=== PATIENT | female | born 1980 | race Caucasian/White ===

== ENCOUNTER → 2022-09-20 08:39 | Outpatient (CLI) | payer OTHER, SELFPAY ==
[2022-09-20 09:21] LABS: Hematocrit 45.3 % (36-46); Hemoglobin 15.6 g/dL (12.0-16.0); Mean Corpuscular HGB Conc 34.4 % (30-36); Mean Corpuscular Hemoglobin 30.2 PG (26-34); Mean Corpuscular Volume 87.7 fL (80-100); Platelet Count 232 X10^3/uL (150-400); Red Blood Cell Count 5.17 X10^6/uL (4.0-5.2); White Blood Cell Count 8.6 X10^3/uL (4.5-11.0)
[2022-09-20 10:12] LABS: Alanine Aminotransferase 24 IU/L (<35); Albumin 4.4 g/dL (3.5-5.0); Albumin Globulin Ratio 1.1 (1.0-2.8); Alkaline Phosphatase 112 U/L (38-126); Aspartate Aminotransferase 25 IU/L (14-36); BUN Creatinine Ratio 13.3 (6-22); Bilirubin Total 0.7 mg/dL (0.2-1.3); Blood Urea Nitrogen 8 mg/dL (7-17); Calcium 8.9 mg/dL (8.4-10.2); Carbon Dioxide 26 mmol/L (22-32); Chloride 100 mmol/L (98-107); Cholesterol 166 mg/dL (140-199); Estimated Glomerular Filt Rate > 60 mL/min (>60); Globulin 3.9 g/dL (1.7-4.1); Glucose 90 mg/dL (70-100); HDL Cholesterol 48 mg/dL (40-60); HEMOLYSIS < 15 (0-50); LDL Cholesterol Calculated 88 mg/dL (<100); Potassium 3.6 mmol/L (3.4-5.1); Sodium 138 mmol/L (137-145); Total Protein 8.3 g/dL (6.3-8.2); Triglycerides 151 mg/dL (35-150)
[2022-09-20 10:42] LABS: TSH w/ Reflex to FT4 1.23 uIU/mL (0.47-4.68)
== END ==
PROVIDERS: PCP Internal Medicine; Referring Provider Internal Medicine; Visit Provider Internal Medicine
DX: E78.2 Mixed hyperlipidemia (principal); I10 Essential (primary) hypertension
CPT/HCPCS: 36415; 80053; 80061; 84443; 85027

== ENCOUNTER → 2023-12-27 12:50 | Outpatient (CLI) | payer OTHER, SELFPAY | PROVIDERS: PCP Internal Medicine; Referring Provider Internal Medicine; Visit Provider Internal Medicine | DX: E78.2 Mixed hyperlipidemia (principal); I10 Essential (primary) hypertension | CPT/HCPCS: 36415 ==

== ENCOUNTER → 2024-02-01 14:46 | Outpatient (CLI) | payer OTHER, SELFPAY ==
[2024-02-01 16:39] LABS: BUN Creatinine Ratio 12.7 (6-22); Blood Urea Nitrogen 7 mg/dL (7-17); Calcium 9.4 mg/dL (8.4-10.2); Carbon Dioxide 22 mmol/L (22-32); Chloride 107 mmol/L (98-107); Cholesterol 154 mg/dL (140-199); Estimated Glomerular Filt Rate > 60 mL/min (>60); Glucose 78 mg/dL (70-100); HDL Cholesterol 57 mg/dL (40-60); HEMOLYSIS < 15 (0-50); LDL Cholesterol Calculated 73 mg/dL (<100); Sodium 137 mmol/L (137-145); Triglycerides 121 mg/dL (35-150)
== END ==
PROVIDERS: PCP Internal Medicine; Referring Provider Internal Medicine; Visit Provider Internal Medicine
DX: I10 Essential (primary) hypertension (principal); E78.2 Mixed hyperlipidemia
CPT/HCPCS: 36415; 80048; 80061

== ENCOUNTER → 2025-01-29 14:13 | Outpatient (CLI) | payer OTHER, SELFPAY ==
[2025-01-29 14:55] LABS: Hemoglobin 15.2 g/dL (12.0-16.0); Mean Corpuscular HGB Conc 34.6 % (30-36); Mean Corpuscular Hemoglobin 30.7 PG (26-34); Mean Corpuscular Volume 88.8 fL (80-100); Platelet Count 253 X10^3/uL (150-400); Red Blood Cell Count 4.95 X10^6/uL (4.0-5.2); Red Cell Distribution Width 12.6 % (11.6-14.8); White Blood Cell Count 6.2 X10^3/uL (4.5-11.0)
[2025-01-29 15:27] LABS: BUN Creatinine Ratio 16.1 (6-22); Blood Urea Nitrogen 9 mg/dL (7-17); Calcium 9.7 mg/dL (8.4-10.2); Carbon Dioxide 21 mmol/L (22-32); Chloride 106 mmol/L (98-107); Cholesterol 166 mg/dL (140-199); Estimated Glomerular Filt Rate > 60 mL/min (>60); Glucose 87 mg/dL (70-100); HDL Cholesterol 56 mg/dL (40-60); HEMOLYSIS < 15 (0-50); LDL Cholesterol Calculated 86 mg/dL (<100); Potassium 4.2 mmol/L (3.4-5.1); Sodium 138 mmol/L (137-145); Triglycerides 119 mg/dL (35-150)
[2025-01-29 15:56] LABS: TSH w/ Reflex to FT4 1.27 uIU/mL (0.47-4.68)
== END ==
LOC: LAB 14:14
PROVIDERS: PCP Internal Medicine; Referring Provider Internal Medicine; Visit Provider Internal Medicine
DX: I10 Essential (primary) hypertension (principal); R53.83 Other fatigue
CPT/HCPCS: 80048; 80061; 84443; 85027